=== PATIENT | male | born 2000 | race Hispanic/Latino ===

== ENCOUNTER 2022-03-11 21:42 | Emergency (ER) | payer MEDICAID ==
[~2022-03-11] VITALS: Ht 185.4 cm; Wt 117.5 kg
[2022-03-11 22:21] VITALS: BP 143/84
[2022-03-11] MEDS ORDERED: AMOX1TAB16 PO (22:31)
== END 2022-03-11 22:38 | disposition home or self-care (01) ==
LOC: EDH 21:42
DX: S91.331A Puncture wound without foreign body, right foot, initial encounter (principal); W26.8XXA Contact with other sharp object(s), not elsewhere classified, initial encounter; Y93.89 Activity, other specified; Y92.89 Other specified places as the place of occurrence of the external cause; Y99.8 Other external cause status
CPT/HCPCS: 73620

== ENCOUNTER 2022-09-26 22:46 | Emergency (ER) | payer MEDICAID ==
[~2022-09-26] VITALS: Ht 182.9 cm; Wt 108.4 kg
[~2022-09-26 22:46] MED LIST: AMOX1TAB16 PO
[2022-09-27] MEDS ORDERED: CEPH500B PO (00:37)
[2022-09-27] MEDS ORDERED: CEPHALEXIN 500 MG CAPSULE PO ONE (01:00)
[2022-09-27] MEDS ORDERED: LIDOCAINE 1%-EPI 1:100,000 20 ML VIAL IJ SCH (01:00)
[2022-09-27 01:02] VITALS: BP 132/90
== END 2022-09-27 01:09 | disposition home or self-care (01) ==
LOC: EDH 22:46
DX: S61.411A Laceration without foreign body of right hand, initial encounter (principal); W26.0XXA Contact with knife, initial encounter; Y93.89 Activity, other specified; Y92.89 Other specified places as the place of occurrence of the external cause; Y99.8 Other external cause status
CPT/HCPCS: 12002

== ENCOUNTER 2022-10-17 16:42 | Emergency (ER) | payer MEDICAID ==
[~2022-10-17] VITALS: Ht 182.9 cm; Wt 113.4 kg
[~2022-10-17 16:42] MED LIST changes: +CEPH500B PO
[2022-10-17 18:53] VITALS: BP 122/62
== END 2022-10-17 18:50 | disposition home or self-care (01) ==
LOC: EDH 16:42
DX: S61.411D Laceration without foreign body of right hand, subsequent encounter (principal); X58.XXXD Exposure to other specified factors, subsequent encounter
CPT/HCPCS: 99281